=== PATIENT | male | born 1960 | race African-American/Black ===

== ENCOUNTER 2017-03-15 07:29 | Day surgery (SDC) | payer OTHER ==
[~2017-03-15] VITALS: Ht 180.3 cm; Wt 139.7 kg
[~2017-03-15 07:29] MED LIST: AMBIEN10 MG PO; AMIODARONE HCL200 MG PO; ASPIRIN81 M2 PO; CALCITRIOL0.25 MCG PO; CARDURA2 M1 PO; CLEOCIN300 MG PO; COLACE100 MG PO; DOXAZOSIN MESYLA2 MG PO; DULCOLAX10 MG PR; ELIQUIS5 MG PO; ENDOCET 10-3251 EACH PO; ERGOCALCIF50000 UNIT; GENTAMICIN SULF30 GM TP; HUMALOG100 UNIT/1 SC; HUMULIN 70100 UNIT/2 SC; HYCODAN SYRUP480 ML PO; K-DUR20 MEQ PO; LANTUS 10100 UNITS/ SC; LASIX40 MG PO; LASIX80 MG PO; LEVAQUIN500 MG PO; LEVEMIR100 UNIT/2 SC; LOSARTAN POTASS50 MG; LOSARTAN POTASS50 MG PO; METOLAZONE5 MG PO; METOPROLOL TART50 MG; METOPROLOL TART50 MG PO; MULTIPLE VITAM1 EAC1 PO; NOVOLOG 10100 UNITS/ SC; PANTOPRAZOLE SO40 MG PO; PERCOCET 5/31 TABLET PO; POLYTRIM EYE DR10 ML BOTH EYES; PRAVASTATIN SOD40 MG PO; PRAVASTATIN SOD80 MG PO; PROAIR HFA8.5 GM IH; RENVELA800 MG PO; ROCALTROL0.5 MCG PO; SENSIPAR30 MG PO; SEVELAMER CARB800 MG PO; SLOW-MAG,MAG DE64 MG PO; TAMSULOSIN HCL0.4 MG PO; TOPROL XL50 MG PO; TRAMADOL HCL E200 M1 PO; TRAMADOL HCL50 MG PO; TYLENOL WITH C1 EACH PO; VENTOLIN HFA18 GM IH; VIAGRA100 MG PO; VITAMIN D250000 UNIT PO
[2017-03-15 08:13] LABS: POINT-OF-CARE METER ID UU14174212
[2017-03-15 08:15] VITALS: BP 137/91
[2017-03-15 08:15] LABS: HEMATOCRIT 37.3 % (38.0-50.0); MCH 30.5 PG (29.0-34.0); MCHC 34.3 G/DL (30.0-36.0); MCV 88.8 FL (86-99); MEAN PLAT.VOLUME 9.5 uM^3 (9.0-12.4); PLATELET COUNT 222 K/uL (156-360); RBC DIS.WIDTH-CV 14.1 % (11.8-14.6); RBC DIS.WIDTH-SD 45.1 % (39-53); WHITE BLOOD COUNT 5.4 K/uL (4.1-10.2)
[2017-03-15 08:31] LABS: ANION GAP 13 MEQ/L (2-14); CHLORIDE 96 MEQ/L (99-109); POTASSIUM 4.4 MEQ/L (3.7-5.4); SAMPLE HEMOLYSIS CHECK 1; SAMPLE ICTERIC CHECK 0; SAMPLE LIPEMIA CHECK 0; SODIUM 136 MEQ/L (136-147)
[2017-03-15 08:36] LABS: GFR ESTIMATE (CALCULATED) 11 mL/min/; GLUCOSE 167 mg/dL (70-99); UREA NITROGEN (BUN) 60 mg/dL (9-23)
[2017-03-15 11:27] LABS: POINT-OF-CARE METER ID UU13113675; POINT-OF-CARE USER ID ADMKMM76
[2017-03-15] MEDS ORDERED: NORCO 5/3251 TABLET PO (11:35)
[2017-03-15 11:55] VITALS: BP 151/78
[2017-03-15 12:52] VITALS: BP 140/74
== END 2017-03-15 12:50 | disposition home or self-care (01) ==
LOC: SDC 07:29
PROVIDERS: Surgery
PROC: 0WW Anatomical Regions, General, Revision (ICD-10-PCS; principal; 2017-03-15)
DX: T85.611A Breakdown (mechanical) of intraperitoneal dialysis catheter, initial encounter (principal); I12.0 Hypertensive chronic kidney disease with stage 5 chronic kidney disease or end stage renal disease; E11.22 Type 2 diabetes mellitus with diabetic chronic kidney disease; N18.6 End stage renal disease; Z99.2 Dependence on renal dialysis; Z79.4 Long term (current) use of insulin; I25.10 Atherosclerotic heart disease of native coronary artery without angina pectoris; Z95.1 Presence of aortocoronary bypass graft; N40.0 Benign prostatic hyperplasia without lower urinary tract symptoms; I48.91 Unspecified atrial fibrillation; Z79.82 Long term (current) use of aspirin; Z79.01 Long term (current) use of anticoagulants; E66.01 Morbid (severe) obesity due to excess calories; Z68.41 Body mass index [BMI] 40.0-44.9, adult; Z72.0 Tobacco use
CPT/HCPCS: 80048; 82948; 85027; C1750; J0690; J1644; J2250; J2405; J3010